=== PATIENT | female | born 1965 | race African-American/Black ===

== ENCOUNTER 2021-04-12 07:29 | Emergency (ER) | payer SELFPAY ==
[~2021-04-12] VITALS: Ht 170.2 cm; Wt 72.7 kg
[2021-04-12 07:38] VITALS: BP 148/90
--- NOTE | 2021-04-12 08:41 | PHYS DOC ---
Past Medical History Past Surgical History: Other Additional Past Surgical Histo: HERNIA General Adult EDM: Chief Complaint: VAGINAL PROBLEM HPI: HPI: 55 yo AA F who denies any past medical history presents to the ED with her ex- , (patient consents to his/her/their knowledge and involvement in pts' medical care), c/o "there's a bubble down there." Reports she noticed it this morning. Denies any recent constipation, heavy lifting, squatting, diarrhea, or sexual activity. Reports history of 5 vaginal deliveries. States is not sexually active and has no abnormal vaginal discharge, itching, odor or vaginal bleeding. Review of Systems: Review of Systems: Constitutional: Denies fever or chills. [] Eyes: Denies change in visual acuity. [] HENT: Denies nasal congestion or sore throat. [] Respiratory: Denies cough or shortness of breath. [] Cardiovascular: Denies chest pain or edema. [] GI: Denies nausea vomiting : Denies dysuria or vaginal bleeding Musculoskeletal: Denies back pain or joint pain. [] Integument: Denies rash or diaphoresis Neurologic: Denies headache, focal weakness or sensory changes. [] Endocrine: Denies polyuria or polydipsia. [] Lymphatic: Denies swollen glands. [] Psychiatric: Denies depression or anxiety. [] Heart Score: C/O Chest Pain: No Risk Factors: Risk Factors: DM, Current or recent (<one month) smoker, HTN, HLP, family history of CAD, obesity. Risk Scores: Score 0 - 3: 2.5% MACE over next 6 weeks - Discharge Home Score 4 - 6: 20.3% MACE over next 6 weeks - Admit for Clinical Observation Score 7 - 10: 72.7% MACE over next 6 weeks - Early Invasive Strategies Allergies: Allergies: Allergies Coded Allergies Type Severity Reaction Last Updated Verified Penicillins Allergy Intermediate UNKNOWN 04/12/21 Yes Physical Exam: PE: Constitutional: Well developed, well nourished, no acute distress, non-toxic appearance. HENT: Normocephalic, atraumatic, Eyes: EOMI, conjunctiva normal, no discharge. Neck: Normal range of motion, supple, Cardiovascular: S1/2 present, regular rhythm Lungs & Thorax: Speaking in full sentences, bilateral equal chest rise, no tachypnea or increased work of breathing Abdomen: soft, no tenderness, Skin: Warm, dry, no erythema, no rash. [] Extremities: No tenderness, no cyanosis, no lower extremity edema Neurologic: Alert and oriented X 3, normal motor function, normal sensory function, no focal deficits noted. [] Psychologic: Affect normal, judgement normal, mood normal. [] Pelvic: Chaperoned by RN, external genitalia normal, no vaginal bleeding, normal nonmalodorous discharge, cervical os closed, at vaginal inoitrus - large circular structure with rugea concerning for uterine prolapse, no cervical erythema, no CMT or adnexal tenderness, tolerated exam well Current Patient Data: Vital Signs: Vital Signs Date Time Temp Pulse Resp B/P (MAP) Pulse Ox O2 Delivery O2 Flow Rate FiO2 04/12/21 07:38 98.3 89 17 148/90 (109) 100 Room Air 98.3 EKG: EKG: [] Radiology/Procedures: Radiology/Procedures: [] Course & Med Decision Making: Course & Med Decision Making Pertinent Labs and Imaging studies reviewed. (See chart for details) Exam for uterine prolapse with no significant discomfort during exam-cervical os just at that vaginal opening but hasn't came out of the vagina. Patient with multiple questions regarding this and is asking for resources. I left a print off resources and look for granulated sugar. Return to patient's room she had eloped from emergency department. Patient did not provide the contact phone number under her demographic information-she was not seen in the ED waiting room, emergency department parking lot. All attempts were made to identify desiree ent who had medical decision made capacity but eloped from the emergency department. Patient was aware to avoid increasing pelvic pressure (no straining, heavy lifting, coughing, squats, etc) and that physical therapy +/- pessaries with obgyn/urogen consult was the recommendations. Patient left before any discharge papers were printed or given to her. Diego Disclaimer: Diego Disclaimer: This electronic medical record was generated, in whole or in part, using a voice recognition dictation system. Departure Departure Impression: Primary Impression: Uterine prolapse Disposition: LEFT AWOL/ELOPED Condition: STABLE Referrals: ROMEL CHOUDHARY MD Follow-up with your primary care physician in 24 to 48 hours OR FOLLOW UP WITH FAMILY MEDICINE: [address], [facility] [address] [place] [address] Additional Instructions: Call [email or web address] for definitive management Toll Free: Local Phone: [phone] RODNEY HERRERA DO Apr 12, 2021 08:41
== END 2021-04-12 08:30 | disposition left against medical advice (07) ==
LOC: ER 07:29
DX: N81.4 Uterovaginal prolapse, unspecified (principal); Z98.890 Other specified postprocedural states; Z88.0 Allergy status to penicillin
CPT/HCPCS: 99284